=== PATIENT | female | born 1970 | race Caucasian/White ===

== ENCOUNTER 2022-04-14 08:15 | Emergency (ER) | payer OTHER | END 2022-04-14 10:20 | disposition home or self-care (01) | LOC: DL.ED 08:15 | DX: J06.9 Acute upper respiratory infection, unspecified (principal); F17.210 Nicotine dependence, cigarettes, uncomplicated; Z90.710 Acquired absence of both cervix and uterus; Z20.822 Contact with and (suspected) exposure to COVID-19 | CPT/HCPCS: 87081; 87430; 99282; 99283; U0002 ==